=== PATIENT | male | born 1955 | race Caucasian/White ===

== ENCOUNTER → 2021-02-21 09:44 | Outpatient (CLI) | payer OTHER, SELFPAY ==
--- NOTE | ~2021-02-21 | CT_ITS ---
EXAMINATION: CT sinus wo con DATE: 02/21/2021 09:57 INDICATION: Sinus congestion, deviated nasal septum TECHNIQUE: Computed tomography (CT) of the paranasal sinuses was performed without intravenous contra st. The dose-length product (DLP) was 275.58 mGy-cm. Iterative reconstruction was used. COMPARISON: None FINDINGS: There are 7 mm of leftward deviation of the nasal septum. There is normal development and p neumatization of the paranasal sinuses. There is mild mucosal thickening of the frontal and maxillary sinuses and ethmoidal air cells. The sphenoid sinuses are clear. There is a periapical abscess of th e right upper first molar. The bilateral ostiomeatal complexes are patent. Visualized soft tissues ar e unremarkable. IMPRESSION: 1. 7 mm of leftward deviation of the nasal septum. 2. Mild sinus disease. Reviewed, dictated and finalized at location A.
== END ==
PROVIDERS: Visit Provider Otolaryngology
DX: J34.3 Hypertrophy of nasal turbinates (principal); J34.2 Deviated nasal septum
CPT/HCPCS: 70486

== ENCOUNTER 2022-04-15 12:03 | Outpatient (CLI) | payer OTHER, SELFPAY ==
--- NOTE | ~2022-04-15 | CT_ITS ---
EXAMINATION: CT abdomen pelvis wo con DATE: 04/15/2022 12:24 INDICATION: Acute right flank pain TECHNIQUE: Computed tomography (CT) of the abdomen and pelvis was performed without intravenous contr ast. Automated exposure control and iterative reconstruction technique were employed. Exam dose: 223 .60 mGy-cm total exam DLP. COMPARISON: None. FINDINGS: Mild discoid atelectasis or scarring, posteromedial right lower lobe. The lung bases are cl ear of infiltrate or consolidation. Normal heart size. No pericardial or pleural effusion. The liver, gallbladder, bile ducts, pancreas, pancreatic duct and adrenal glands are unremarkable on this limited noncontrast examination. Approximately 10 x 8 mm anterior lower pole exophytic left renal probable cyst. There are are approximately 4 lower pole nonobstructing left renal calculi, measuring up to 7.5 mm ap proximate maximal dimension, the largest with attenuation of 1091 Hounsfield units. There are multiple right renal cysts, measuring up to 3.5 cm. There is a pinpoint nonobstructing lower pole right renal calculus. There is severe right hydroureteronephrosis, with 2 large calculi noted in the distal right ureter me asuring up to 11 mm and 12 mm maximal dimension, with attenuation of the 3701-3048 Hounsfield unit ra nge. Urological consultation is recommended, as the stones would not be expected to pass spontaneousl y. The urinary bladder is unremarkable. There is prostate enlargement and multiple prostate calcificatio ns. Small bilateral fat-containing inguinal hernias. Very small fat-containing umbilical hernia. Normal caliber of the abdominal aorta. No intraperitoneal or retroperitoneal or pelvic mass lesion or adenopathy or ascites. Diverticulosis of the colon; no CT evidence of diverticulitis. Normal appendix. No bowel obstruction or intraperitoneal free air. Included skeletal structures are unremarkable. IMPRESSION: There are 2 approximately 11 mm 12 mm distal right ureteral calculi with associated marcelo re right hydroureteronephrosis. Urological consultation is recommended Pinpoint nonobstructing lower pole right renal calculus Nonobstructive left nephrolithiasis Bilateral renal cysts Diverticulosis of the colon; no CT evidence of diverticulitis Prostate enlargement and calcifications Small bilateral fat-containing inguinal hernias and very small fat-containing umbilical hernia Reviewed, dictated and finalized at Location A. Reviewed, dictated and finalized at location B. EGE ADVISOR IMPRESSION: There are 2 approximately 11 mm 12 mm distal right ureteral calcul i with associated severe right hydroureteronephrosis. Urological consultation i s recommended Pinpoint nonobstructing lower pole right renal calculus Nonobstructive left nephrolithiasis Bilateral renal cysts Diverticulosis of the colon; no CT evidence of diverticulitis Prostate enlargement and calcifications Small bilateral fat-containing inguinal hernias and very small fat-containing u mbilical hernia
== END 2022-04-15 12:04 | disposition home or self-care (01) ==
PROVIDERS: PCP Student in an Organized Health Care Education/Training Program; Visit Provider Student in an Organized Health Care Education/Training Program
DX: R10.9 Unspecified abdominal pain (principal); R68.83 Chills (without fever); Z87.442 Personal history of urinary calculi; N20.0 Calculus of kidney; K57.30 Diverticulosis of large intestine without perforation or abscess without bleeding; N28.1 Cyst of kidney, acquired; K40.20 Bilateral inguinal hernia, without obstruction or gangrene, not specified as recurrent
CPT/HCPCS: 74176

== ENCOUNTER 2022-05-01 07:51 | Outpatient (CLI) | payer OTHER, SELFPAY ==
--- NOTE | 2022-05-01 08:00 | ECG_ITS ---
Measurements Intervals [place] Rate: 73 P: 29 WI: 175 QRS: -18 QRSD: 141 T: 15 QT: 390 QTc: 433 Interpretive Statements SINUS RHYTHM INTRAVENTRICULAR CONDUCTION DELAY BORDERLINE ECG NO PREVIOUS ECG AVAILABLE FOR COMPARISON Electronically Signed On 05-01-2022 8:08:50 MANAGER MOBILE by Yassine Gallardo D.O.
== END 2022-05-01 07:52 | disposition home or self-care (01) ==
PROVIDERS: PCP Student in an Organized Health Care Education/Training Program; Visit Provider Urology
DX: I10 Essential (primary) hypertension (principal); Z01.818 Encounter for other preprocedural examination; I45.9 Conduction disorder, unspecified
CPT/HCPCS: 93005

== ENCOUNTER 2022-05-07 00:21 | Day surgery (SDC) | payer OTHER, SELFPAY ==
[2022-04-29 15:32] VITALS: BMI 26.6
--- NOTE | 2022-04-29 15:38 | PC.NURSE ---
PRE-OP INSTRUCTIONS, PLEASE READ CAREFULLY Report to the Outpatient Waiting Room, entrance under the green pavilion located off [facility], at time _0630_ on date _05/07/22_. Planned Procedure Time: _0830_. Time changes happen often and if your time is changed the preop area will call you the afternoon before. - You and your visitor will be asked to self-screen and do not enter if you have any COVID symptoms. - Only one visitor is requested with a max of two and NO children visitors are allowed at this time. - The patient visitor may be requested to leave or wait in car when not with patient due to distancing restrictions. - A mask is REQUIRED within the hospital. Patients may have clear liquids (water, carbonated beverages, clear teas, apple juice) until 3 hours prior to surgery (0530 AM) with a maximum of 20 ounces. - No food from midnight until time of surgery Take the following medications with a SIP of water the morning of surgery: _TYLENOL IF NEEDED_ Medications to discontinue per physician __N/A__, Date to take last dose Please no make-up, nail danish, hairspray, perfume, deodorant, or body powder the day of surgery. No jewelry (including any body piercings) or valuables the day of surgery, leave them at home. Please take a shower or bath the night before, or the morning of, surgery with an antibacterial soap. Wear comfortable, loose fitting clothing. Children are encouraged to wear pajamas. - Jewelry must be removed prior to entering the operating room. Rings and piercings that are not removed may be cut off. - The hospital will not accept responsibility for valuables. - Please leave all valuables, including medications, at home the day of surgery. If you are going home after surgery, a licensed concrete mixer truck driver must drive you home. - NO public transportation without another adult if you receive anesthesia. - We recommend that an adult stay with you for 24 hours following discharge. - We also recommend that you do not drive, make important decision, drink alcoholic beverages, or take any drugs that were not prescribed by your health care provider for at least 24 hours after your discharge time. Follow any additional instructions given to you from your surgeon. If you or anyone in your household have experienced Covid symptoms in the past week, please notify your surgeon or the nurse liaison at the phone number below for possible testing. Telephone instructions given to _PATIENT_and asked if any additional questions and then verbalized understanding. Patient advised to call surgeon office or pre surgery nurse liaison [phone] if any additional questions.
[2022-05-07] VITALS (8 sets, daily range): BP systolic 126–153; BP diastolic 75–87; PULSE 66–96; RESP 14–16; TEMP 36.3–36.9; O2SAT 95–100
--- NOTE | ~2022-05-07 | XR_ITS ---
EXAMINATION: XR stent kub - surgery DATE: 05/07/2022 09:45 INDICATION: Right ureteral stone. TECHNIQUE: 3 intraoperative fluoroscopic views of the abdomen and pelvis were obtained. I was not pre sent. Fluoroscopy exposure time was 52 seconds. COMPARISON: CT abdomen and pelvis 04/15/2022 FINDINGS: There are 2 stones in distal right ureter. Additional images demonstrate removal of the sto meenakshi and placement of a right internal ureteral stent in expected position. IMPRESSION: 1. Extraction of two distal right ureteral stones 2. Right internal ureteral stent in expected position. Reviewed, dictated and finalized at location A. ICAL DOCUMENTATION CONSULTANT
--- NOTE | 2022-05-07 06:41 | WPDHPUPDATE1 ---
History and Physical Update Update Date/Time: 05/07/22 06:41 History and Physical has been reviewed, including an updated exam of the patient. There are NO changes in the patient's condition. Risks, benefits, and alternatives have been discussed and questions answered. Patient agrees to proceed with procedure.
[2022-05-07] MEDS: LACTATED RINGERS 1,000 ML 30 ML IV CONT ×2 (07:42→09:50)
--- NOTE | 2022-05-07 07:53 | P.PNAN_ITS ---
Anes - Initial Pre Proc Eval Procedure: Operation Date: 05/07/22 08:30 Proposed Procedures p Cystoscopy, Right Ureteroscopy, Laser Lithotripsy with Right Stone Extraction, Possible Right Stent Placement - Everett Flor MD Date/Time: 05/07/22 07:53 Surgeon: Everett Flor MD Pre Op Diagnosis: right ureteral kidney stones Patient Data Age: 66 Gender: M Height: 1.78 m Weight: 82.8 kg Last Vital Signs Temp 36.3 C L 05/07/22 07:34 Pulse 67 05/07/22 07:34 Resp 14 05/07/22 07:34 BP 140/84 05/07/22 07:34 Pulse Ox 97 05/07/22 07:34 O2 Del Method Room Air 05/07/22 07:34 Allergies Allergy/AdvReac Type Severity Reaction Status Date / Time No Known Allergies Allergy Verified 05/07/22 07:42 Home Medications Medication Instructions Recorded Confirmed Type acetaminophen 325 mg tablet 325 mg PO QID PAIN 04/29/22 04/29/22 History (Tylenol) losartan 50 mg tablet 50 mg HS 04/29/22 04/29/22 History Patient hx anesthesia problems: none Family hx anesthesia problems: none Results Review: All pre-operative results and documents have been reviewed as part of the pre- operative evaluation. [facility] Past Medical History Medical History (Updated 05/07/22 @ 07:53 by Shade Hernandez MD) HTN (hypertension) Surgical History Surgical History (Updated 05/07/22 @ 07:53 by Shade Hernandez MD) Hx of cystoscopy Social History Social History Smoking status: Never smoker Second hand tobacco smoke exposure: No Alcohol intake: never Substance use: never Substance use type: does not use Living arrangements: with family Spiritual care concerns: No Anes - Eval Final PreProcedure Day of Procedure 05/07/22 07:53 Patient weight: normal Heart: regular rate and rhythm Lungs: clear to auscultation Airway: Mallampati scale class II Neurological: alert and oriented Last oral intake: >/= 8 hours ASA classification: II Emergent: no Anesthetic plan: proceed Anesthesia type and monitoring: general LMA and standard monitoring Results Review: All pre-operative results and documents have been reviewed as part of the pre-op erative evaluation. Informed Consent: The patient's anesthetic plan and its attendant risks and benefits were discussed with the patient/family/POA. Questions were solicited and answers provided to the satisfaction of the patient/family/POA.
[2022-05-07] MEDS: ceFAZolin 2 GM/D5W 50 ML 2 GM/50 ML BAG IVPB (08:36)
[2022-05-07] MEDS: LIDOCAINE HCL 2% GEL UROJET 10 ML PKG MUCOUS MEM (08:58)
--- NOTE | 2022-05-07 09:45 | W.PM.PROC2 ---
Procedure Note - Detailed Date of Procedure 05/07/22 Pre-op Diagnosis Right ureteral kidney stones Post-op Diagnosis Same Procedure Performed Cystoscopy, right ureteroscopy with laser lithotripsy, stone extraction and right ureteral stent placement Surgeon Everett Flor MD Anesthesia General Description of Procedure Patient is brought to the operative suite was prepped draped in routine sterile fashion while in dorsal lithotomy position after the uneventful induction of a general LMA anesthetic. Patient has no urethral strictures. He has significant prostatic hyperplasia with predominantly lateral lobe enlargement. Bladder slightly trabeculated but there was no intravesical foreign body or neoplasm. There was no diverticula in the bladder. He has a single orthotopic ureteral orifice bilaterally. A 0.035 in glidewire was advanced into the right renal pelvis and the distal ureter was dilated with an 8 F 10 F dilator. Ureteroscopy was undertaken with the short tapered semi-rigid ureteral scope. He has 2 large stones in the distal right ureter, each measuring approximately 1 cm. Using the Sai laser with a 200 micron fiber we dusted the 1st stone in fragmented the 2nd stone. All chips were evacuated. A 4.8 F double-J ureteral stent was position with the proximal coil in the kidney distal coil in the bladder. Scopes and wires removed the patient bladder was emptied. He was taken recovery room good condition. Drains Yes Pathology Yes Complications No immediate complications Condition Stable
== END 2022-05-07 11:13 | disposition home or self-care (01) ==
PROVIDERS: PCP Student in an Organized Health Care Education/Training Program; Visit Provider Urology
PROC: (CPT 52352; principal; 2022-05-07 08:30)
DX: N20.1 Calculus of ureter (principal); I10 Essential (primary) hypertension
CPT/HCPCS: 52356; 82365; 88300; 93005; A9270; C1769; C2617; J0690; J1100; J1885; J2250; J2405; J2704; J3010; J7120

== ENCOUNTER 2022-06-15 08:59 | Outpatient (CLI) | payer OTHER, SELFPAY ==
--- NOTE | ~2022-06-15 | US_ITS ---
Renal-Bladder ultrasound Clinical History: Right ureteral stone Technique: Real-time sonographic imaging of the kidneys and urinary bladder was performed. Findings: The right kidney measures 12.9 cm in length and the left kidney measures 12.1 cm. Suspected mild right hydronephrosis. No left hydronephrosis. 7 mm nonobstructing left renal stone noted. Renal cortical echogenicity is within normal limits. 3.9 cm right renal cyst present. The urinary bladder is moderately distended at the time of this exam. No intraluminal echoes are iden tified. No abnormal wall thickening is seen. Impression: Suspected mild right hydronephrosis. 7 mm nonobstructing left renal stone. Reviewed, dictated and finalized at location M. N YARN DYER HELPER Impression: Suspected mild right hydronephrosis. 7 mm nonobstructing left renal stone.
== END 2022-06-15 09:00 | disposition home or self-care (01) ==
PROVIDERS: PCP Student in an Organized Health Care Education/Training Program; Visit Provider Urology
DX: N20.0 Calculus of kidney (principal)
CPT/HCPCS: 76775

== ENCOUNTER 2022-07-08 07:57 | Outpatient (CLI) | payer OTHER, SELFPAY ==
[2022-07-08 09:40] LABS: INR 1.1; Prothrombin Time 13.4 Seconds (11.1-14.7)
[2022-07-08 09:41] LABS: Partial Thromboplastin Time 27.7 SECONDS (22.3-36.8)
== END 2022-07-08 07:58 | disposition home or self-care (01) ==
LOC: ANHSURGERY 08:00
PROVIDERS: PCP Student in an Organized Health Care Education/Training Program; Visit Provider Urology
DX: Z01.818 Encounter for other preprocedural examination (principal); N20.0 Calculus of kidney
CPT/HCPCS: 36415; 85610; 85730; 87086; 87147; 87181; 87186

== ENCOUNTER 2022-07-17 00:30 | Day surgery (SDC) | payer OTHER, SELFPAY ==
--- NOTE | 2022-07-03 12:55 | PC.NURSE ---
PRE-OP INSTRUCTIONS, PLEASE READ CAREFULLY Report to the Outpatient Waiting Room, entrance under the green pavilion located off [facility], at time _0600_ on date _07/17/22_. Planned Procedure Time: _0730_. Time changes happen often and if your time is changed the preop area will call you the afternoon before. - You and your visitor will be asked to self-screen and do not enter if you have any COVID symptoms. - Only one visitor is requested with a max of two and NO children visitors are allowed at this time. - The patient visitor may be requested to leave or wait in car when not with patient due to distancing restrictions. - A mask is optional within the hospital at this time. Patients may have clear liquids (water, carbonated beverages, clear teas, apple juice) until 3 hours prior to surgery (0430 AM) with a maximum of 20 ounces. - No food from midnight until time of surgery Take the following medications with a SIP of water the morning of surgery: _NONE_ DO NOT STOP ANY OF YOUR OTHER PRESCRIPTION MEDICATIONS PRIOR TO SURGERY ?EXCEPT THE FOLLOWING Medications to discontinue _PT STATES MULTIVITAMIN 7 DAYS PRIOR TO SURGERY PER DR. SOTO'S INSTRUCTIONS, Date to take last dose 07/09/22_ Please no make-up, nail egyptian, hairspray, perfume, deodorant, or body powder the day of surgery. No jewelry (including any body piercings) or valuables the day of surgery, leave them at home. Please take a shower or bath the night before, or the morning of, surgery with an antibacterial soap. Wear comfortable, loose fitting clothing. - Jewelry must be removed prior to entering the operating room. Rings and piercings that are not removed may be cut off. - The hospital will not accept responsibility for valuables. - Please leave all valuables, including medications, at home the day of surgery. If you are going home after surgery, a licensed local company truck driver must drive you home. - NO public transportation without another adult if you receive anesthesia. - We recommend that an adult stay with you for 24 hours following discharge. - We also recommend that you do not drive, make important decision, drink alcoholic beverages, or take any drugs that were not prescribed by your health care provider for at least 24 hours after your discharge time. Follow any additional instructions given to you from your surgeon. If you or anyone in your household have experienced Covid symptoms in the past week, please notify your surgeon or the nurse liaison at the phone number below for possible testing. Telephone instructions given to _PATIENT_and asked if any additional questions and then verbalized understanding. Patient advised to call surgeon office or pre surgery nurse liaison [phone] if any additional questions.
[2022-07-03 12:59] VITALS: BMI 25.9
[2022-07-17] VITALS (7 sets, daily range): BP systolic 107–147; BP diastolic 69–90; PULSE 66–82; RESP 10–20; TEMP 36.6–36.7; O2SAT 96–98
--- NOTE | ~2022-07-17 | XR_ITS ---
Supine and upright views of the abdomen Clinical history: Lithotripsy Findings: Bowel gas pattern is nonspecific. No evidence for obstruction or free air. Multiple left re nal stones are present, measuring up to 7 mm. Questionable small right renal stones. Osseous structur es are intact. Impression: Left nephrolithiasis, as above. Possible small right renal stones. Reviewed, dictated and finalized at location . Impression: Left nephrolithiasis, as above. Possible small right renal stones.
--- NOTE | 2022-07-17 06:32 | WPDHPUPDATE1 ---
History and Physical Update Update Date/Time: 07/17/22 06:32 History and Physical has been reviewed, including an updated exam of the patient. There are NO changes in the patient's condition. Risks, benefits, and alternatives have been discussed and questions answered. Patient agrees to proceed with procedure.
--- NOTE | 2022-07-17 07:01 | WPDANESEPPF ---
Anes - Initial Pre Proc Eval Procedure: Operation Date: 07/17/22 07:30 Proposed Procedures p Left Extracorporeal Shock Wave Lithotripsy - Everett Flor MD Date/Time: 07/17/22 07:01 Surgeon: Everett Flor MD Pre Op Diagnosis: Left Ureteral Stone Patient Data Age: 67 Gender: M Height: 1.78 m Weight: 81.81 kg Allergies Allergy/AdvReac Type Severity Reaction Status Date / Time No Known Allergies Allergy Verified 05/07/22 07:42 Home Medications Medication Instructions Recorded Confirmed Type losartan 50 mg tablet 50 mg HS 04/29/22 07/03/22 History multivitamin 1 tablet PO DAILY 07/03/22 07/03/22 History Patient hx anesthesia problems: none Family hx anesthesia problems: none Results Review: All pre-operative results and documents have been reviewed as part of the pre-operative evaluation. [facility] Past Medical History Medical History HTN (hypertension) Surgical History Surgical History Hx of cystoscopy Social History Social History Smoking status: Never smoker Second hand tobacco smoke exposure: No Alcohol intake: never Substance use: never Substance use type: does not use Living arrangements: with family Spiritual care concerns: No Anes - Eval Final PreProcedure Day of Procedure 07/17/22 07:01 Patient weight: normal Heart: regular rate and rhythm Lungs: clear to auscultation Airway: Mallampati scale class II Neurological: alert and oriented Last oral intake: >/= 8 hours ASA classification: II Emergent: no Anesthetic plan: proceed Anesthesia type and monitoring: general LMA and standard monitoring Results Review: All pre-operative results and documents have been reviewed as part of the pre-operative evaluation. Informed Consent: The patient's anesthetic plan and its attendant risks and benefits were discussed with the patient/family/POA. Questions were solicited and answers provided to the satisfaction of the patient/family/POA.
[2022-07-17] MEDS: ceFAZolin 2 GM/D5W 50 ML 2 GM/50 ML BAG IVPB (07:22)
--- NOTE | 2022-07-17 07:52 | W.PM.PROC2 ---
Procedure Note - Detailed Date of Procedure 07/17/22 Pre-op Diagnosis Left Renal Stone Post-op Diagnosis Same Procedure Performed Left ESWL Surgeon Everett Flor MD Anesthesia General Description of Procedure The patient was brought to the operative suite where he was placed in the supine position on the Dornier lithotripsy table. The focal point of the lithotripter was placed at a one of two 5mm stones in left lower pole. A total of 1250 shocks were delivered at a power setting of 4. We then treated a similar size stone right next to it with an additional 1250 shocks. There appeared to be good fragmentation of the stone. The patient tolerated the procedure well and was taken to the recovery room in good condition. Drains No Packing No Pathology None sent Complications No immediate complications Condition Stable Disposition PACU
[2022-07-17] MEDS: LACTATED RINGERS 1,000 ML 30 ML IV CONT (08:08)
[2022-07-17] MEDS: oxyCODONE HCL (*CRX) 5 MG TAB IR PO (08:49)
== END 2022-07-17 09:25 | disposition home or self-care (01) ==
PROVIDERS: PCP Student in an Organized Health Care Education/Training Program; Visit Provider Urology
PROC: (CPT 50590; principal; 2022-07-17 07:30)
DX: N20.0 Calculus of kidney (principal); I10 Essential (primary) hypertension
CPT/HCPCS: 50590; 36415; 74018; 85610; 85730; 87086; 87147; 87181; 87186; A9270; J0690; J1100; J2250; J2405; J2704; J3010; J7120

== ENCOUNTER 2022-07-21 16:33 | Outpatient (CLI) | payer OTHER, SELFPAY ==
--- NOTE | ~2022-07-21 | XR_ITS ---
EXAMINATION: XR abdomen/kub 1V INDICATION: Left kidney stones TECHNIQUE: Supine views of the abdomen were obtained on 2 radiographs. COMPARISON: 07/17/2022 FINDINGS: A 9 mm stone previously seen in the left mid kidney is no longer evident, likely due to int erval lithotripsy. There are stones or stone fragments measuring 3 mm and 6 mm in the left kidney low er pole. No additional urolithiasis is identified. There are calcifications in the prostate. No stone s or stone fragments are identified along the expected courses of the ureters. The bowel gas pattern is normal. The visualized lung bases are clear. IMPRESSION: 1. Interval treatment of the previously identified stone in the left mid kidney with persistent stone s or stone fragments in the left kidney lower pole Reviewed, dictated and finalized at location F. IMPRESSION: 1. Interval treatment of the previously identified stone in the left mid kidney with persistent stones or stone fragments in the left kidney lower pole
== END 2022-07-21 16:34 | disposition home or self-care (01) ==
PROVIDERS: PCP Student in an Organized Health Care Education/Training Program; Visit Provider Urology
DX: N20.1 Calculus of ureter (principal)
CPT/HCPCS: 74018

== ENCOUNTER 2022-11-04 14:53 | Outpatient (CLI) | payer OTHER, SELFPAY ==
--- NOTE | ~2022-11-04 | XR_ITS ---
EXAMINATION: XR abdomen/kub 1V DATE: 11/04/2022 15:08 INDICATION: Kidney stones. TECHNIQUE: A supine view of the abdomen on 2 radiographs was obtained. COMPARISON: Abdomen radiographs 07/21/2022, CT abdomen and pelvis 04/15/2022 FINDINGS: There are no dilated loops of bowel. The kidneys are obscured by bowel. There are 6 mm and 4 mm stones in left kidney. IMPRESSION: 1. Left kidney stones. Reviewed, dictated and finalized at location E. IMPRESSION: 1. Left kidney stones.
== END 2022-11-04 14:54 | disposition home or self-care (01) ==
PROVIDERS: PCP Student in an Organized Health Care Education/Training Program; Visit Provider Urology
DX: N20.0 Calculus of kidney (principal)
CPT/HCPCS: 74018

== ENCOUNTER 2023-03-29 10:24 | Outpatient (CLI) | payer MEDICARE, SELFPAY ==
--- NOTE | ~2023-03-29 | XR_ITS ---
XR abdomen/kub 1V 03/29/2023 10:45 Indication: Lithotripsy Procedure: KUB Comparison: 11/04/2022 Findings: There is left renal stones. Bowel gas pattern nonobstructive. Lung bases unremarkable. No a cute osseous abnormality. Impression: 1: Left nephrolithiasis. Reviewed, dictated and finalized at location B. RGROUND ELECTRICIAN Impression: 1: Left nephrolithiasis.
== END 2023-03-29 10:25 | disposition home or self-care (01) ==
PROVIDERS: PCP Student in an Organized Health Care Education/Training Program; Visit Provider Urology
DX: N20.0 Calculus of kidney (principal)
CPT/HCPCS: 74018

== ENCOUNTER 2024-04-06 14:19 | Outpatient (CLI) | payer MEDICARE, SELFPAY ==
--- NOTE | ~2024-04-06 | US_ITS ---
EXAMINATION: US soft tissue groin RT DATE: 04/06/2024 15:06 INDICATION: Unilateral inguinal hernia. TECHNIQUE: Multiple grayscale and Doppler ultrasound images of the right groin were obtained. COMPARISON: CT abdomen and pelvis 04/15/2022 FINDINGS: There is a right inguinal hernia containing fat. IMPRESSION: 1. Right inguinal hernia containing fat. Reviewed, dictated and finalized at location A. SERVICE SUPERVISOR
== END 2024-04-06 14:20 | disposition home or self-care (01) ==
PROVIDERS: PCP Student in an Organized Health Care Education/Training Program; Visit Provider Student in an Organized Health Care Education/Training Program
DX: K40.90 Unilateral inguinal hernia, without obstruction or gangrene, not specified as recurrent (principal)
CPT/HCPCS: 76882

== ENCOUNTER 2024-07-17 14:10 | Outpatient (CLI) | payer MEDICARE, SELFPAY ==
--- NOTE | ~2024-07-17 | XR_ITS ---
XR abdomen/kub 1V Ordering provider: Everett Flor MD History: . KIDNEY STONE ON LEFT SIDE, FOLLOW UP . Comparison: March 29, 2023. FINDINGS: BOWEL: Nonobstructive bowel gas pattern. ORGANOMEGALY: None. SIGNIFICANT PATHOLOGIC CALCIFICATIONS: Multiple stones in the left kidney. Fecal material is overlapping the right kidney. OTHER: No free air is seen under the diaphragm. IMPRESSION: NO ACUTE ABDOMINAL FINDINGS. Left kidney stones. Reviewed, dictated and finalized at location A.
--- OUTSIDE RECORDS SUMMARY | 2024-07-17 16:20 | XMS_ITS | Clinical Summary ---
Author Organization [facility] Address [address] [place] [address] Care Team Providers Care Perioperative Manager Name Role Phone Unavailable Primary Care Provider Unavailabl e Source Comments [facility],non-owned Affiliates and Associated Physician Practices is amultiple site organization consisting of ambulatory clinics and hospital sitesin [place], [place], [place] and [place]. This disclosure is being madepursuant to the Care Everywhere program and may not contain all information available regarding this patient. Last updated 18.[employer] [facility] Allergies No known active allergies Medications * Be aware that medications may not be up to date on this document. Alwaysverify current medications with the patient. Medication Sig Dispensed Refills Start Date End Date Status cyclobenzaprine (FLEXERIL) 10 MG tabletIndications:Back muscle spasm Take 1 Tab by mouth 3 times daily as needed for Muscle Spasms 15 Tab 04/06/2016 Active Social History Tobacco Use Types Packs/Day Years Used Date Smoking Tobacco: Never Assessed Sex and Gender Information Value Date Recorded Sex Assigned at Not on file Gender Identity Not on file Sexual Orientation Not on file Last Filed Vital Signs Vital Sign Reading Time Taken Comments Blood Pressure 168/96 04/06/2016 2:01 PM PATROL INSPECTOR Pulse 74 04/06/2016 2:01 PM PATROL INSPECTOR Temperature 36.7 C (98 F) 04/06/2016 2:01 PM PATROL INSPECTOR Respiratory Rate 16 04/06/2016 2:01 PM PATROL INSPECTOR Oxygen Saturation - - Inhaled Oxygen Concentration - - Weight 83.9 kg (185 lb) 04/06/2016 2:01 PM PATROL INSPECTOR Height 180.3 cm (5' 11 ) 04/06/2016 2:01 PM PATROL INSPECTOR Body Mass Index 25.8 04/06/2016 2:01 PM PATROL INSPECTOR Plan of Treatment Health Maintenance Due Date Last Done Comments COLOGUARD (AGES 45-75) - COL ON CA SCREENING 1956 COLON MONITORING 1956 COLONOSCOPY - COLON CA SCREENING 1956 CT COLONOGRAPHY - COLON CA SCREENING 1956 Colorectal Cancer Screening 1956 FIT - COLON CA SCREENING 1956 FLEX SIG - COLON CA SCREENING 1956 LIPID TESTING 1956 HEPATITIS C SCREENING 05/15/1974 DTAP/TDAP/TD VACCINES (1 - Tdap) 1975 PNEUMOCOCCAL VACCINE 50+ (1 of 1 - PCV) 2006 ZOSTER VACCINE (1 of 2) 2006 COVID-19 VACCINE ( - 2023-2 5 season) 2023 INFLUENZA VACCINE (#1) 2023 DEPRESSION SCREENING 04/26/2024 Respiratory Syncytial Virus (RSV) Vaccine Pt: or over 60 yrs (1 - 1-dose 75+ series) 2031 HEPATITIS B VACCINE Aged Out No longe r eligible based on patient's age to complete this topic HIB VACCINE Aged Out No longer eligi ble based on patient's age to complete this topic HPV VACCINE Aged Out No longer eligi ble based on patient's age to complete this topic MENINGOCOCCAL (Group B) VACC INE SHARED DECISION-MAKING Aged Out No longer eligibl e based on patient's age to complete this topic MENINGOCOCCAL GROUPS A/C/Y/W VACCINE Aged Out No longer eligible b ased on patient's age to complete this topic
--- OUTSIDE RECORDS SUMMARY | 2024-07-17 16:20 | XMS_ITS | Encounter Summary ---
Author Organization [facility] Address [address] [place] [address] Care Team Providers Care Accelerator Technician Name Role Phone Deepak Wintre DO Primary Care Provider + Encounter Details Date Type Department Care Team (Late st Contact Info) Description 05/12/2021 netFactorhart Message Enc [facility] Family & Internal Medicine [facility] [address] [place] [address] Deepak Winter DO [facility] [place], [place] [id number] COID-19 Test Results Social History Tobacco Use Types Packs/Day Years Used Date Smoking Tobacco: Never Smokeless Tobacco: Never Alcohol Use Standard Drinks/Week Comments Yes 10 (1 standard drink = 0.6 oz pu re alcohol) twice a week PHQ-2 Answer Date Recorded PHQ-2 Score - If the patient scores above 3, please move on to questions 3-9 0 02/28/2021 Sex and Gender Information Value Date Recorded Sex Assigned at Not on file Legal Sex Male 3:26 PM CDT Gender Identity Male 05/07/2021 8:50 AM LINE CLOSER Sexual Orientation Straight 05/07/2021 8: 50 AM LINE CLOSER 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 Yes 05/05/2021 8:36 AM LINE CLOSER documented as of this encounter Progress Notes * Deepak Winter DO - 05/13/2021 1:57 PM CST Can just monitor. CLOSER documented in this encounter Plan of Treatment Upcoming Encounters Date Type Department Care Team (Late st Contact Info) Description 10/09/2024 7:00 AM CDT Office Visit [facility] Family & Internal Medicine [place] [address] [place] [address] Deepak Winter DO [facility] [place] [address] documented as of this encounter Visit Diagnoses Not on filedocumented in this encounter Additional Health Concerns Infection Onset Date Last Indicated Resolved Time COVID-19 Rule Out 09/24/2022 09/24/2022 09/24/2022 11:14 AM CDT Assessment Noted Time PHQ-9 Depression Total Score: 0 02/29/20 7:31 AM CDT documented as of this encounter Care Teams Accelerator Technician Relationship Specialty Start Date End Date Deepak Winter DO [address] [place] [address] PCP - General FAMILY PRACTICE 02/28/21 documented as of this encounter
--- OUTSIDE RECORDS SUMMARY | 2024-07-17 16:20 | XMS_ITS | Clinical Summary ---
Author Organization [facility] Address [address] [place] [address] Care Team Providers Care Director Of Field Sales Name Role Phone Deepak Winter DO Primary Care Provider + Allergies No known active allergies Medications losartan (COZAAR) 50 MG tabletIndications:P rimary hypertension TAKE 1 TABLET BY MOUTH DAILY 100 tablet 1 5 Active rosuvastatin (CRESTOR) 10 MG tabletIndications:H yperlipidemia, unspecified hyperlipidemia type TAKE 1 TABLET BY MOUTH EVERY NIGHT AT BEDTIME 100 tablet 1 5 Active Active Problems Problem Noted Date Diagnosed Date Hypertension 02/28/2021 Overview (09/24/2022): [address] Winter Resolved Problems Problem Noted Date Diagnosed Date Resolved Date Kidney calculus 04/14/2022 10/14/2022 Encounters Date Type Department Care Team Description 06/08/2024 Scan [facility] INFO SRVCS Scanned, [facility] 06/02/2024 Scan [facility] HEALTH INFO SRVCS Scanned, [facility] from Last 3 Months Immunizations Name Administration Dates Next Due Fluzone High Dose - >Age 65 (Prefilled Syringe) 01/27/2023,02/05/2022 Influenza (Generic) 02/06/2021 Influenza Adult (Generic) 02/05/2022 MODERNA COVID-19 BIVALENT (12+), MRNA, LNP-S, PF 04/23/2022 PFIZER COVID-19 (WYATT CAP), MRNA, LNP-S, PF, 30 MCG/0.3 ML SHANNON-SUCROSE, IM 10/23/2021 PFIZER COVID-19 (ORIGINAL FO RMULATION, PURPLE CAP) mRNA, LNP-S, PF, 30 MCG/0.3 ML DOSE 03/03/2021 Pneumococcal (Prevnar 20) 07/23/2021 Shingrix 2021,03/03/2021 Tdap (Adacel) 02/28/2021 Family History Medical History Relation Comments Arthritis Brother 1 Hypertension Brother 2 Cancer Brother 3 Spindle cell juan coma in chest. Removed with surgery 2021 Hypertension Brother 3 Cancer Brother 4 Breast Cancer Father Hypertension Father Prostate Cancer Father No Known Problems Mother Cancer Sister 2 breast cancer ar ound 2009 Hypertension Sister 2 Relation Status Comments Brother 1 Alive Brother 2 Alive Brother 3 Alive Brother 4 Father Mother Sister 1 Alive Sister 2 Social History Tobacco Use Types Packs/Day Years Used Date Smoking Tobacco: Never Passive Smoke Exposure: Never Smokeless Tobacco: Never Tobacco Cessation:Counseling Given: Not Answered Alcohol Use Standard Drinks/Week Comments Yes 3.3 (1 standard drink = 0.6 oz p ure alcohol) 2 per week PHQ-2 Answer Date Recorded Patient Health Questionnaire-2 Score 0 01/18/2024 Sex and Gender Information Value Date Recorded Sex Assigned at Not on file Legal Sex Male 3:26 PM CDT Gender Identity Male 05/07/2021 8:50 AM DIRECTOR CALL Sexual Orientation Straight 05/07/2021 8: 50 AM DIRECTOR CALL 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 Not on file Not on f ile Last Filed Vital Signs Vital Sign Reading Time Taken Comments Blood Pressure 138/82 01/18/2024 10:45 AM CDT Pulse 74 01/18/2024 10:45 AM CDT Temperature 36.8 C (98.3 F) 01/18/2024 10:45 AM CDT Respiratory Rate 14 01/18/2024 10:4 5 AM CDT Oxygen Saturation 97% 01/18/2024 10: 45 AM CDT Inhaled Oxygen Concentration - - Weight 82.9 kg (182 lb 11.2 oz) 024 10:45 AM CDT Height 177.8 cm (5' 10 ) 01/18/2024 10: 45 AM CDT Body Mass Index 26.21 01/18/2024 10:45 AM CDT Plan of Treatment Upcoming Encounters Date Type Department Care Team (Late st Contact Info) Description 10/09/2024 7:00 AM CDT Office Visit [facility] Family & Internal Medicine - [address] [phone] Deepak Winter DO [address] [place] [address] Health Maintenance Due Date Last Done Comments Annual Medicare Wellness Visit 2021 COVID-19 Vaccine ( season) 2023 04/23/2022, 10/23/2021, 03/03/2021, Additional history exists PHQ-2 (Physician [place]) 04/26/2024 01/18/2024 Colorectal Cancer Screening FIT-DNA (3 Years) 03/27/2027 03/27/2024, 03/24/2021, 03/24/2021 DTaP, Tdap and Td Vaccines (2 - Td or Tdap) 02/28/2031 02/28/2021 RSV Immunization or 60+ Years (1 - 1-dose 75+ series) 2031 Zoster Vaccines Completed 2021, 03/03/2021 Pneumococcal Vaccine: 65+ Years Completed 07/23/2021 Hepatitis C Completed 10/23/2021 Influenza Adult Completed 02/16/2024, 100 07/2022, 02/05/2022, Additional history exists Meningococcal B Vaccine Aged Out No l onger eligible based on patient's age to complete this topic Meningococcal Vaccine Aged Out No diana ke eligible based on patient's age to complete this topic RSV Immunizations Under 20 Months Aged Out No longer eligible based on patient's age to complete this topic Procedures Procedure Name Priority Date/Time Associated Diagnosis Comments COLOGUARD (EXACT SCIENCE) Routine 03/27/2024 9:50 AM DIRECTOR CALL Screening for malignant neoplasm of colon HEPATITIS C ANTIBODY Routine 10/23/2021 8:03 AM CDT Need for hepatitis C screening test from Last 3 Months or Most Recently Relevant to Health Maintenance Results * COLOGUARD (EXACT SCIENCE) (03/27/2024 9:50 AM DIRECTOR CALL) COLOGUARD RESULT Negative Negative EXA Localist (CLIA #:[id number]) Comment: NEGATIVE TEST RESULT. A negative Cologuard result indicates a low likelihood that a colorectal cancer (CRC) or advanced adenoma (adenomatous polyps with more advanced pre-malignant features) is present. The chance that a person with a negative Cologuard test has a colorectal cancer is less than 1 in 1500 (negative predictive value >99.9%) or has an advanced adenoma is less than 5.3% (negative predictive value 94.7%). These data are based on a prospective cross-sectional study of 10,000 individuals at average risk for colorectal cancer who were screened with both Cologuard and colonoscopy. (Rodrigo Conde al, N Engl J Med 2014;370(14):6804-3573) The normal value (reference range) for this assay is negative. COLOGUARD RE-SCREENING RECOMMENDATION: Periodic colorectal cancer screening is an important part of preventive healthcare for asymptomatic individuals at average risk for colorectal cancer. Following a negative Cologuard result, the [place] Cancer Society and U.S. Multi-Society Task Force screening guidelines recommend a Cologuard re-screening interval of 3 years. References: [place] [employer] Society Guideline for Colorectal Cancer Screening: https://www.cancer.org/cancer/ddjzw-gojrqo-roglah/osxznyaxg-dsxxqwyjv-kxezucg/ac s-rec ommendations.html.; Azael DK, Satnam CR, Deion VallesK, Colorectal Cancer Screening: Recommendations for Physicians and Patients from the U.S. Multi-Society Task Force on Colorectal Cancer Screening , Am J Gastroenterology 2017; 112:2829-0224. TEST DESCRIPTION: Composite algorithmic analysis of stool DNA-biomarkers with hemoglobin immunoassay. Quantitative values of individual biomarkers are not reportable and are not associated with individual biomarker result reference ranges. Cologuard is intended for colorectal cancer screening of adults of either sex, 45 years or older, who are at average-risk for colorectal cancer (CRC). Cologuard has been approved for use by the U.S. FDA. The performance of Cologuard was established in a cross sectional study of average-risk adults aged 50-84. Cologuard performance in patients ages 45 to 49 years was estimated by sub-group analysis of near-age groups. Colonoscopies performed for a positive result may find as the most clinically significant lesion: colorectal cancer [4.0%], advanced adenoma (including sessile serrated polyps greater than or equal to 1cm diameter) [20%] or non- advanced adenoma [31%]; or no colorectal neoplasia [45%]. These estimates are derived from a prospective cross-sectional screening study of 10,000 individuals at average risk for colorectal cancer who were screened with both Cologuard and colonoscopy. (Rodrigo Conde al, N Engl J Med 2014;370(14):5870-4110.) Cologuard may produce a false negative or false positive result (no colorectal cancer or precancerous polyp present at colonoscopy follow up). A negative Cologuard test result does not guarantee the absence of CRC or advanced adenoma (pre-cancer). The current Cologuard screening interval is every 3 years. ([place] Cancer Society and U.S. Multi-Society Task Force). Cologuard performance data in a 10,000 patient pivotal study using colonoscopy as the reference method can be accessed at the following location: www.[employer].Nintex/results. Additional description of the Cologuard test process, warnings and precautions can be found at www.cologuard.com. STOOL STOOL SPECIMEN / Unknown 03/27/2024 9:50 AM DIRECTOR CALL 03/29/2024 9:58 AM DIRECTOR CALL us Deepak Winter DO BODY FLUIDS AND STOOLS O RDERABLES Final [facility] ([facility]) [address] [place] [address], [employer] (CLIA #:[id number]) [address] [place] [address] * HEPATITIS C AB ([facility] ONLY) (10/23/2021 8:03 AM CDT) HEPATITIS C AB NON-REACTI VE NON-REACT JAN 10/23/2021 7:27 PM CDT [facility] Comment: ANTIBODIES TO HCV NOT DETECTED. DOES NOT EXCLUDE THE POSSIBILITY OF EXPOSURE TO HCV. 10/23/2021 8:03 AM CDT Deepak Winter DO LABORATORY Final Re sult [facility] [address] [place] [address], [id number] from Last 3 Months or Most Recently Relevant to Health Maintenance Insurance [facility] Care Teams Director Of Field Sales Relationship Specialty Start Date End Date Deepak Winter DO [address] [place] [address] PCP - General FAMILY PRACTICE 02/28/21
--- OUTSIDE RECORDS SUMMARY | 2024-07-17 16:20 | XMS_ITS | Encounter Summary ---
Author Organization [facility] Address [address] [place] [address] Care Team Providers Care Entry Level Accountant Name Role Phone Deepak Winter DO Primary Care Provider + Encounter Details Date Type Department Care Team (Late st Contact Info) Description 09/26/2022 Apreso Classroomt Message Enc [facility] Family & Internal Medicine [facility] [address] [place] [address] Antonieta Kirk, CARLOS [address] [place], [place] [phone] Blood Pressure Results Social History Tobacco Use Types Packs/Day Years Used Date Smoking Tobacco: Never Smokeless Tobacco: Never Alcohol Use Standard Drinks/Week Comments Not Currently 0 (1 standard drink = 0.6 oz pure alcohol) I reduced consumption in February 2021 to practically none PHQ-2 Answer Date Recorded PHQ-2 Score - If the patient scores above 3, please move on to questions 3-9 0 07/22/2021 Sex and Gender Information Value Date Recorded Sex Assigned at Not on file Legal Sex Male 3:26 PM CDT Gender Identity Male 05/07/2021 8:50 AM HIDE WASHER Sexual Orientation Straight 05/07/2021 8: 50 AM HIDE WASHER 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 No / Unsure 09/24/2022 9:44 AM CDT documented as of this encounter Progress Notes * Deepak Winter DO - 09/28/2022 12:54 PM CDT Can just be monitored in the interim. documented in this encounter Plan of Treatment Upcoming Encounters Date Type Department Care Team (Late st Contact Info) Description 10/09/2024 7:00 AM CDT Office Visit [facility] Family & Internal Medicine - [place] [phone] [place] [address] Deepak Winter DO [address] [place] [address] documented as of this encounter Visit Diagnoses Not on filedocumented in this encounter Additional Health Concerns Assessment Noted Time PHQ-9 Depression Total Score: 0 02/29/20 7:31 AM CDT documented as of this encounter Care Teams Entry Level Accountant Relationship Specialty Start Date End Date Deepak Winter DO [address] [place] [address] PCP - General FAMILY PRACTICE 02/28/21 documented as of this encounter
--- OUTSIDE RECORDS SUMMARY | 2024-07-17 16:20 | XMS_ITS | Encounter Summary ---
Author Organization [facility] Address [address] [place] [address] Care Team Providers Care Measurer Name Role Phone Deepak Winter DO Primary Care Provider + Encounter Details Date Type Department Care Team (Late Contact Info) Description 12/27/2023 MyChart Message Enc [facility] Family & Internal [address] [phone] Deepak Winter DO [address] [place] [phone] Cologuard test Social History Tobacco Use Types Packs/Day Years Used Date Smoking Tobacco: Never Passive Smoke Exposure: Never Smokeless Tobacco: Never Alcohol Use Standard Drinks/Week Comments Yes 3.3 (1 standard drink = 0.6 oz p ure alcohol) 2 per week PHQ-2 Answer Date Recorded Patient Health Questionnaire-2 Score 0 10/07/2023 Sex and Gender Information Value Date Recorded Sex Assigned at Not on file Legal Sex Male 3:26 PM CDT Gender Identity Male 05/07/2021 8:50 AM ARCHITECTURAL DESIGN LECTURER Sexual Orientation Straight 05/07/2021 8: 50 AM ARCHITECTURAL DESIGN LECTURER 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 Not on file Not on f ile documented as of this encounter Plan of Treatment Upcoming Encounters Date Type Department Care Team (Late st Contact Info) Description 10/09/2024 7:00 AM CDT Office Visit [facility] Family & Internal [address] [phone] Deepak Winter DO [address] [place] [address] documented as of this encounter Visit Diagnoses Not on filedocumented in this encounter Additional Health Concerns Assessment Noted Time PHQ-9 Depression Total Score: 0 02/29/20 21 7:31 AM CDT documented as of this encounter Care Teams Measurer Relationship Specialty Start Date End Date Deepak Winter DO [address] [place] [address] PCP - General FAMILY PRACTICE 02/28/21 documented as of this encounter
--- OUTSIDE RECORDS SUMMARY | 2024-07-17 16:20 | XMS_ITS | Encounter Summary ---
Author Organization [facility] Address [address] [place] [address] Care Team Providers Care Vp Biology Name Role Phone Deepak Winter DO Primary Care Provider + Encounter Details Date Type Department Care Team (Late st Contact Info) Description 02/12/2022 Contents Firstt Message Enc [facility] Family & Internal Medicine [facility] [address] [place] [address] Deepak Winter DO [facility] [place], [place] [phone] Physician Health Screening Form Social History Tobacco Use Types Packs/Day Years [...] CDT Gender Identity Male 05/07/2021 8:50 AM SUCTION DRUM DRIER OPERATOR Sexual Orientation Straight 05/07/2021 8: 50 AM SUCTION DRUM DRIER OPERATOR 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 Deepak Winter Sent: 02/12/2022 10:53 AM CDT Subject: Physician Health Screening Form Tigist, Attached is a Physician Health Screening Form. Would you please complete this form with the information from my last exam (October 23, 2021) and send it to [facility] (contact information is listedat the bottom of page 1). Thank you, Lenin Campso [phone] documented in this encounter Plan of Treatment Upcoming Encounters Date Type Department Care Team (Late st Contact Info) Description 10/09/2024 7:00 AM CDT Office Visit [facility] Family & Internal Medicine - [address] [phone] Deepak Winter DO [address] [place] [address] documented as of this encounter Visit Diagnoses Not on filedocumented in this encounter Additional Health Concerns Infection Onset Date Last Indicated Resolved Time COVID-19 Rule Out 09/24/2022 09/24/2022 09/24/2022 11:14 AM CDT Assessment Noted Time PHQ-9 Depression Total Score: 0 02/29/20 7:31 AM CDT documented as of this encounter Care Teams Vp Biology Relationship Specialty Start Date End Date Deepak Winter DO [address] [place] [address] PCP - General FAMILY PRACTICE 02/28/21 documented as of this encounter
== END 2024-07-17 14:11 | disposition home or self-care (01) ==
PROVIDERS: PCP Student in an Organized Health Care Education/Training Program; Visit Provider Urology
DX: N20.0 Calculus of kidney (principal)
CPT/HCPCS: 74018

== ENCOUNTER 2024-10-12 07:53 | Outpatient (CLI) | payer MEDICARE, SELFPAY ==
--- OUTSIDE RECORDS SUMMARY | 2024-10-12 07:58 | XMS_ITS | Clinical Summary ---
Author Organization [facility] [place] Address [address] [place] [address] Care Team Providers Care Global Director Air And Climate Change Name Role Phone Unavailable Primary Care Provider Unavailabl e Source Comments [facility] [place],non-owned Affiliates and Associated Physician Practices is amultiple site organization consisting of ambulatory clinics and hospital sitesin [place], [place], [place] and [place]. This disclosure is being madepursuant to the Care Everywhere program and may not contain all information available regarding this patient. Last updated 18.[employer] [place] Allergies No known active allergies Medications * Be aware that medications may not be up to date on this document. Alwaysverify current medications with the patient. cyclobenzaprine (FLEXERIL) 10 MG tabletIndication s:Back muscle spasm Take 1 Tab by mouth 3 times daily as needed for Muscle Spasms 15 Tab 04/06/2016 Active Social History Tobacco Use Types Packs/Day Years Used Date Smoking Tobacco: Never Assessed Sex and Gender Information Value Date Recorded Sex Assigned at Not on file Legal Sex Male 9:48 AM [employer] Gender Identity Not on file Sexual Orientation Not on file Last Filed Vital Signs Vital Sign Reading Time Taken Comments Blood Pressure 168/96 04/06/2016 2:01 PM [employer] Pulse 74 04/06/2016 2:01 PM [employer] Temperature 36.7 C (98 F) 04/06/2016 2:01 PM G[employer] Respiratory Rate 16 04/06/2016 2:01 PM G[employer] W[employer] Oxygen Saturation - - Inhaled Oxygen Concentration - - Weight 83.9 kg (185 lb) 04/06/2016 2:01 PM GATE W[employer] Height 180.3 cm (5' 11) 04/06/2016 2:01 PM GATE W[employer] Body Mass Index 25.8 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
--- NOTE | 2024-10-12 08:00 | ECG_ITS ---
Test Date: 2024-10-12 08:12:10 Measurements Intervals [place] Rate: 63 P: 31 [place]: 201 QRS: -7 QRSD: 125 T: 11 QT: 408 QTc: 418 Interpretive Statements SINUS RHYTHM INCOMPLETE RIGHT BUNDLE BRANCH BLOCK BASELINE ARTIFACT- I, II, AVR, AVF BORDERLINE ECG No previous ECG available for comparison Electronically Signed On 10-12-2024 08:14:19 CDT by Yassine Gallardo D.O.
== END 2024-10-12 07:54 | disposition home or self-care (01) ==
LOC: ANHSURGERY 07:56
PROVIDERS: PCP Student in an Organized Health Care Education/Training Program; Visit Provider Surgery
DX: K40.90 Unilateral inguinal hernia, without obstruction or gangrene, not specified as recurrent (principal); I10 Essential (primary) hypertension; I45.10 Unspecified right bundle-branch block
CPT/HCPCS: 36415; 86850; 86900; 86901; 93005

== ENCOUNTER 2024-10-18 00:32 | Day surgery (SDC) | payer MEDICARE, SELFPAY ==
[2024-10-09 14:31] VITALS: BMI 26.9
--- NOTE | 2024-10-09 14:39 | PC.NURSE ---
Report to the Outpatient Waiting Room, entrance under the green pavilion located off [facility], at time __06:00am on date __10/18/24 . Planned Procedure Time: _07:30am .? Time changes happen often and if your time is changed the preop area will call you the afternoon before. - You and your visitor will be asked to self-screen and do not enter if you have any COVID symptoms. Please call surgeon if you need to reschedule. - A mask is optional within the hospital at this time. Patients may have clear liquids (water, carbonated beverages, clear teas, apple juice) until 3 hours prior to surgery with a maximum of 20 ounces. - No food from midnight until time of surgery and no smoking, or chewing tobacco (or any form of nicotine). No chewing gum, candy or mints. (0430am) Take only the following medications with a SIP of water on the morning of surgery: _ NONE DO NOT STOP ANY OF YOUR OTHER PRESCRIPTION MEDICATIONS PRIOR TO SURGERY EXCEPT THE FOLLOWING Hold all vitamins and supplements for 3 days per anesthesiologist.Date to take last dose 10/14/24. Medications to discontinue per physician NONE Date to take last dose NONE Please no make-up, nail lithuanian, hairspray, perfume, deodorant, or body powder the day of surgery.? No jewelry (including any body piercings) or valuables the day of surgery, leave them at home.? Please take a shower or bath the night before, or the morning of, surgery with an antibacterial soap.?( GOLD DIAL) Wear comfortable, loose fitting clothing.? - Jewelry must be removed prior to entering the operating room.? Rings and piercings that are not removed may be cut off. - The hospital will not accept responsibility for valuables.? - Please leave all valuables, including medications, at home the day of surgery. If you are going home after surgery, a licensed pharmacy delivery driver must drive you home.? - NO public transportation without another adult if you receive anesthesia. - We recommend that an adult stay with you for 24 hours following discharge. - We also recommend that you do not drive, make important decision, drink alcoholic beverages, or take any drugs that were not prescribed by your health care provider for at least 24 hours after your discharge time. Follow any additional instructions given to you from your surgeon. Telephone instructions given to ___Patient and asked if any additional questions and then verbalized understanding. Patient advised to call surgeon office or pre surgery nurse liaison [phone] if any additional questions.
[2024-10-18] VITALS (9 sets, daily range): BP systolic 120–148; BP diastolic 63–83; PULSE 58–120; RESP 12–18; TEMP 36.2–36.7; O2SAT 96–100; BMI 26.6
[2024-10-18] MEDS: KETOROLAC 15 MG/ML VIAL (*BKC) IV PUSH (07:00)
[2024-10-18] MEDS: ACETAMINOPHEN 500 MG TABLET 1000 MG PO (07:00)
[2024-10-18] MEDS: LACTATED RINGERS 1,000 ML 30 ML IV CONT ×2 (07:00→08:36)
--- NOTE | 2024-10-18 07:11 | P.PNAN_ITS ---
Anes - Initial Pre Proc Eval Procedure: Operation Date: 10/18/24 07:30 Proposed Procedures p Laparoscopic Right Inguinal Hernia Repair with Mesh, Davinci Assisted - Kendall Atkins DO Date/Time: 10/18/24 07:11 Surgeon: Kendall Atkins DO Pre Op Diagnosis: right inguinal hernia Patient Data Age: 69 Gender: M Height: 1.78 m Weight: 85 kg Allergies Allergy/AdvReac Type Severity Reaction Status Date / Time No Known Allergies Allergy Verified 10/09/24 14:28 Home Medications ?Medication ?Instructions ?Recorded ?Confirmed ?Type losartan 50 mg tablet 50 mg PO HS 04/29/22 10/09/24 History multivitamin 1 tablet PO DAILY 07/03/22 10/09/24 History rosuvastatin 10 mg tablet 10 mg PO HS 10/09/24 10/09/24 History Patient hx anesthesia problems: none Family hx anesthesia problems: none Results Review: All pre-operative results and documents have been reviewed as part of the pre- operative evaluation. [facility] Past Medical History Medical History HTN (hypertension) Surgical History Surgical History Hx of cystoscopy Family History Family History Father Hypertension Sibling Hypertension Social History Social History Smoking status: Never smoker Second hand tobacco smoke exposure: No Alcohol intake: current Drinks per week: 2 Substance use: never Substance use type: does not use Current Housing: Decline to Answer Concerned About Future Housing: Decline to Answer Difficulty Paying Gas/Electric Bills: Decline to Answer Difficulty Paying for Meds: Decline to Answer Currently Unemployed: Decline to Answer Education: Decline to Answer Difficulty w/ Childcare or Family Care: Decline to Answer Living arrangements: with family Additional living arrangements comments: Spiritual care concerns: No Anes - Eval Final PreProcedure Day of Procedure 10/18/24 07:11 Patient weight: overweight Heart: regular rate and rhythm Lungs: clear to auscultation Airway: Mallampati scale class II Neurological: alert and oriented Last oral intake: >/= 8 hours ASA classification: II Emergent: no Anesthetic plan: proceed Anesthesia type and monitoring: general ETT and standard monitoring Results Review: All pre-operative results and documents have been reviewed as part of the pre- operative evaluation. Informed Consent: The patient's anesthetic plan and its attendant risks and benefits were discussed with the patient/family/POA. Questions were solicited and answers provided to the satisfaction of the patient/family/POA.
--- NOTE | 2024-10-18 07:15 | WPDHPUPDATE1 ---
History and Physical Update Update Date/Time: 10/18/24 07:15 History and Physical has been reviewed, including an updated exam of the patient. There are NO changes in the patient's condition. Risks, benefits, and alternatives have been discussed and questions answered. Patient agrees to proceed with procedure.
--- NOTE | 2024-10-18 07:15 | PM.IMHP ---
H&P: HPI History of Present Illness Date/Time: 10/18/24 07:15 Chief Complaint: right inguinal hernia Narrative: 69 yo man presents for right inguinal hernia repair. He reports no changes since last seen in office. Review of Systems Review of Systems: All systems reviewed & are unremarkable except as noted in HPI and below Constitutional: Constitutional: Denies chills, Denies fever(s), Denies headache(s) and Denies weight loss Eyes: Eyes: Denies change in vision ENT: Denies dizziness, Denies headache(s), Denies neck mass and Denies throat swelling Cardiovascular: Cardiovascular: Denies chest pain, Denies lightheadedness and Denies dyspnea Respiratory: Respiratory: Denies cough, Denies dyspnea and Denies wheezing Gastrointestinal: Gastrointestinal: Denies abdominal pain, Denies change in bowel habits, Denies nausea and Denies vomiting Genitourinary: Genitourinary: Denies hematuria and Denies dysuria Musculoskeletal: Musculoskeletal: Reports as per HPI Integumentary/Breasts: Skin/Breast: Reports as per HPI Neurologic: Denies dizziness and Denies headache(s) Allergic/Immunologic: Allergic/Immunologic: Denies throat swelling and Denies wheezing PMFSH Past Medical History Medical History HTN (hypertension) Surgical History Surgical History Hx of cystoscopy Family History Family History Father Hypertension Sibling Hypertension Social History Social History Smoking status: Never smoker Second hand tobacco smoke exposure: No Alcohol intake: current Drinks per week: 2 Substance use: never Substance use type: does not use Current Housing: Decline to Answer Concerned About Future Housing: Decline to Answer Difficulty Paying Gas/Electric Bills: Decline to Answer Difficulty Paying for Meds: Decline to Answer Currently Unemployed: Decline to Answer Education: Decline to Answer Difficulty w/ Childcare or Family Care: Decline to Answer Living arrangements: with family Additional living arrangements comments: Spiritual care concerns: No Meds Home Medications and Allergies Home Medications ?Medication ?Instructions ?Recorded ?Confirmed ?Type losartan 50 mg tablet 50 mg PO HS 04/29/22 10/09/24 History multivitamin 1 tablet PO DAILY 07/03/22 10/09/24 History rosuvastatin 10 mg tablet 10 mg PO HS 10/09/24 10/09/24 History Allergies Allergy/AdvReac Type Severity Reaction Status Date / Time No Known Allergies Allergy Verified 10/09/24 14:28 Exam Const: General: no acute distress and alert Orientation/consciousness: patient oriented x3 HENMT: Head: normocephalic and atraumatic Ears: hearing grossly normal bilaterally Face/Nose/Sinus: Normal nares present Mouth: Yes Normal oral and palatal mucosa present Eyes: Periorbital: periorbital findings normal Sclera: sclerae normal EOM: EOMs intact bilaterally Neck: Neck: normal visual inspection, no lymphadenopathy and trachea midline Chest: Chest palpation & inspection: normal inspection of the chest Resp: Effort & Inspection: normal respiratory effort Auscultation: clear to auscultation bilaterally Cardio: Jugular venous distension: no JVD Rate: regular rate Rhythm: regular rhythm Heart sounds: S1 normal heart sound present and S2 normal heart sound present Peripheral pulses: Peripheral pulses 2+ throughout GI: Inspection: normal to inspection GI Palp: Yes Soft to palpation, No Tenderness to palpation present (GI), No Guarding due to palpation present (GI) and No Rebound tenderness present Percussion: Yes normal to percussion Auscultation: normal bowel sounds : General: Yes no CVA tenderness Scrotum: inguinal hernia on the right Back/Spine/Pelvis: Back: no CVA tenderness Neuro: General: patient oriented x3, no focal motor deficits and CN's II-XI intact bilaterally Cognition (Neuro): normal cognition Speech: normal speech Motor exam (neuro): 5/5 motor strength present throughout Extrem: General: capillary refill normal and no clubbing, cyanosis or edema Assessment and Plan Assessment and plan (1) Right inguinal hernia: Code(s): K40.90 - Unilateral inguinal hernia, without obstruction or gangrene, not specified as recurrent Status: Acute Assessment and Plan: I have recommended laparoscopic right inguinal hernia repair with mesh, da Maite assisted. I have discussed the procedure, risks, benefits, and alternatives with the patient. All questions answered. No changes since last seen in office.
[2024-10-18] MEDS: ceFAZolin 2 GM/D5W 50 ML 2 GM/50 ML BAG IVPB (07:28)
[2024-10-18] MEDS: BUPIVACAINE/EPINEPHRINE 0.5% 50 ML VIAL 30 ML INFILTRATE (08:09)
--- NOTE | 2024-10-18 08:29 | P.OP_ITS ---
Procedure Note - Detailed Date of Procedure 10/18/24 Pre-op Diagnosis right inguinal hernia Post-op Diagnosis Same (Indirect RIH) Procedure Performed Laparoscopic right inguinal hernia repair with mesh, da Maite assisted Surgeon Kendall Atkins, DO Anesthesia General and Local (0.5% bupivacaine with epinephrine) Indications This is a 69-year-old man who presented with a right groin bulge that he noticed about 9 months ago. He was not experiencing any pain associated with this. He underwent a scrotal ultrasound which showed evidence of a right inguinal hernia containing fat. He was found to have a reducible right inguinal hernia on exam. Discussions were made with the patient about treatment options and decision was made to proceed with robotic assisted laparoscopic right inguinal hernia repair with mesh. Findings Robotic assisted laparoscopic right inguinal hernia repair with mesh was performed. The patient was found to have a medium-sized indirect right inguinal hernia. There was no evidence of a left inguinal hernia and no other intra-abd ominal abnormalities. A robotic transabdominal preperitoneal approach was utilized for repair. Once a wide enough preperitoneal pocket was created and the hernia sac was reduced, I then placed a large right 3DMax mid mesh overlying the entire right myopectineal orifice. Description of Procedure Procedure as well as risks, benefits, and alternatives were discussed with the patient. Written consent was obtained and placed in chart prior to procedure. Patient was brought back to surgical suite. He was placed supine on operating table. Time-out was done to confirm patient and procedure. He was then intubated by Anesthesia Department. His abdomen was prepped and draped in sterile fashion using chlorhexidine prep. 0.5% bupivacaine with epinephrine was infiltrated at each location for incision. An 8 mm incision was made in the left lateral abdomen, and a 5 mm Optiview trocar was advanced through the abdominal layers under direct visualization. Once inside the abdominal cavity, carbon dioxide insufflation was used to create a pneumoperitoneum. A camera was inserted and the abdominal cavity was inspected. The patient was placed in slight Trendelenburg position. An 8 millimeter incision was made on the right lateral abdomen and an 8 millimeter trocar was inserted under direct visualization. Another 8 millimeter incision was made just superior to the umbilicus and an 8 millimeter trocar was inserted under direct visualization. The 5 mm port was then removed and this was replaced with another 8 mm robotic port. The robotic arms were brought up to the patient's bedside and secured to the ports. The camera and instruments were inserted. I then moved over to the robotic console and took control of the camera and instruments. After careful inspection of the abdominal cavity, I began scoring the peritoneum along the right lower quadrant using scissors with electrocautery. The preperitoneal plane was entered and this was carefully dissected caudally along the inferior epigastric vessels. Careful dissection with scissors with electrocautery and blunt dissection was used to continue this dissection. I dissected far enough laterally to allow for mesh placement, and also dissected medially to identify the pubic arch and Jax's ligament. The hernia sac was identified and carefully dissected posteriorly. The cord contents were also identified and the peritoneum was carefully dissected far enough posteriorly to allow for mesh placement. Once an adequate pocket was created, I then placed the mesh within the preperitoneal pocket and carefully unfolded it. The mesh was centered on the hernia defect with adequate overlap circumferentially. The inferior edge of the mesh was inspected to ensure that it was far enough away from the peritoneal edge. The mesh appeared in proper position overlying the entire myopectineal orifice. The mesh was secured using 3-0 Vicryl simple interrupted sutures in Jax's ligament, the superior medial edge, and superior lateral edge of the mesh. The peritoneum was then closed over the mesh using a 3-0 V-lock running absorbable suture. The robotic instruments were removed. The robotic arms were disengaged from the ports and moved away from the bedside. The patient was flattened out in bed, the ports were removed under direct visualization, and the pneumoperitoneum was released. The skin of the incisions was approximated using 4-0 Monocryl subcuticular suture, and Exofin glue was applied on top. The patient was awakened from anesthesia, extubated, and transferred to recovery. Implants Large right 3DMax mid mesh Estimated Blood Loss 5 Complications No immediate complications Condition Stable Disposition Same day [facility] Billing Surgery - Charge Forward: Surgery Billing
[2024-10-18] MEDS: fentaNYL CITRATE INJ (*CRX) 100 MCG/2 ML VIAL 25 MCG IV PUSH ×2 (08:48→09:00)
[2024-10-18] MEDS: oxyCODONE HCL (*CRX) 5 MG TAB IR PO (09:52)
== END 2024-10-18 10:35 | disposition home or self-care (01) ==
PROVIDERS: PCP Student in an Organized Health Care Education/Training Program; Visit Provider Surgery
PROC: 8E0Y4CZ Robotic Assisted Procedure of Lower Extremity, Percutaneous Endoscopic Approach (ICD-10-PCS; CPT 49650; principal; 2024-10-18 07:30)
DX: K40.90 Unilateral inguinal hernia, without obstruction or gangrene, not specified as recurrent (principal); I10 Essential (primary) hypertension; Z98.890 Other specified postprocedural states
CPT/HCPCS: 49650; S2900; A9270; C1781; J0690; J1100; J1596; J1885; J2003; J2250; J2371; J2405; J2704; J3010; J7030; J7120